=== PATIENT | female | born 1990 | race African-American/Black ===

== ENCOUNTER 2017-04-18 19:46 | Emergency (ER) | payer MEDICAID ==
[~2017-04-18] VITALS: Ht 165.1 cm; Wt 66.7 kg
--- NOTE | 2017-04-18 19:50 | NUR ---
TO BED 8 A 26 YO FEMALE PT BIBA#860, PT C/O ANXIETY ATTACK. PATIENT IS ALERT AND RESPONSIVE. AMBULATORY. VSS. NAD NOTED. NONDIAPHORETIC. PLACED ON MONITORING. COMFORT MEASURES RENDERED. SAFETY MAINTAINED.
--- NOTE | 2017-04-18 20:00 | NUR ---
Ramon Laurent at bedside.
[2017-04-18] MEDS ORDERED: LORAZEPAM 1 MG TABLET ONE (20:10)
[2017-04-18] MEDS ORDERED: LORAZEPAM 1 MG TABLET PO ONE (20:30)
[2017-04-18 20:32] LABS: APPEARANCE,URINE Cloudy (CLEAR); BILIRUBIN,URINE SMALL (NEGATIVE); BLOOD, URINE Negative Ery/uL (NEGATIVE); COLOR,URINE Yellow (YELLOW); KETONES,URINE Negative (NEGATIVE); LEUKOCYTE ESTERASE ,URINE Negative (NEGATIVE); NITRITE, URINE Positive (NEGATIVE); PH,URINE 5.5 (5.0-8.0); PROTEIN,URINE >=300 mg/dl (NEGATIVE); UGLUCOSE Negative (NEGATIVE); UROBILINOGEN,URINE 0.2 EU/dL (0.2)
[2017-04-18 20:54] LABS: BACTERIA,URINE Many /HPF (None Seen); RBC,URINE 0-2 /HPF (0-2); SQUAMOUS EPITHELIAL CELL,UR Moderate /HPF (None Seen); URINE AMORPHOUS URATE Few /HPF (None Seen)
[2017-04-18 20:55] LABS: COARSE GRANULAR CASTS,URINE Few /LPF (None Seen); MUCUS,URINE Moderate /LPF (None Seen)
[2017-04-18] MEDS ORDERED: NITROFURANTOIN/NITROFURAN MAC 100 MG CAPSULE PO ONE (21:30)
[2017-04-18] MEDS ORDERED: NITROFURANTOIN/NITROFURAN MAC 100 MG CAPSULE ONE (21:34)
--- NOTE | 2017-04-18 21:54 | NUR ---
Patient discharged to home in stable condition. Written and verbal after care instructions given. Patient verbalizes understanding of instruction. Patient is ambulatory with steady gait. Instructed patient not to drive. vss. nad noted. no further complaints.
[2017-04-18 21:55] VITALS: BP 118/64
== END 2017-04-18 21:55 | disposition home or self-care (01) ==
LOC: ER 19:47
DX: F41.9 Anxiety disorder, unspecified (principal); F42.8 Other obsessive-compulsive disorder; R45.86 Emotional lability; N39.0 Urinary tract infection, site not specified; I10 Essential (primary) hypertension; Z72.0 Tobacco use
CPT/HCPCS: 81000-TC; 82962-TC; 87086-TC; 87186-TC; A4606; Z7610

== ENCOUNTER 2017-05-11 20:06 | Emergency (ER) | payer MEDICAID ==
[~2017-05-11] VITALS: Ht 165.1 cm; Wt 68.0 kg
[2017-05-11 20:11] VITALS: BP 164/98
--- NOTE | 2017-05-11 23:46 | NUR ---
NO ANSWER AFTER 5 CALLS; AWOL
== END 2017-05-11 23:47 | disposition left against medical advice (07) ==
LOC: ER 20:07
DX: Z53.21 Procedure and treatment not carried out due to patient leaving prior to being seen by health care provider (principal)
CPT/HCPCS: A4606; Z7610

== ENCOUNTER → 2017-05-15 | Emergency (ER) | payer MEDICAID ==
[~2017-05-15] VITALS: Ht 165.1 cm; Wt 68.5 kg
[~2017-05-15] MED LIST: IV NS 0.9% 1,000 ML BAG IV ONE; LEVETIRACETAM (500MG) 1,000 MG in IV NS 0.9% 100 ML IV ONE; LORAZEPAM INJ 2 MG/ML VIAL IV ONE; LORAZEPAM INJ 2 MG/ML VIAL IVP ONE; LORAZEPAM INJ 2 MG/ML VIAL ONE
--- NOTE | 2017-05-15 13:59 | NUR ---
urine collected via clean catch and sent to lab
--- NOTE | 2017-05-15 14:00 | NUR ---
line started on L AC g 20, blood drawn from line and sent to lab
[2017-05-15 14:07] LABS: BASOPHILS # (AUTO) 0.2 /CMM (0.0-0.2); EOSINOPHILS # (AUTO) 0.1 /CMM (0.0-0.7); EOSINOPHILS % (AUTO) 1.8 % (0.0-6.0); HEMATOCRIT 42 % (33-45); HEMOGLOBIN 14.3 g/dL (11.5-14.8); LYMPHOCYTES # (AUTO) 1.6 /CMM (0.8-4.8); LYMPHOCYTES % (AUTO) 26.2 % (20.0-44.0); MEAN CORPUSCULAR HEMOGLOBIN 32 PG (26.0-33.0); MEAN CORPUSCULAR HGB CONC 34 g/dl (31.0-36.0); MEAN CORPUSCULAR VOLUME 92 fL (82-100); MONOCYTES # (AUTO) 0.5 /CMM (0.1-1.30); MONOCYTES % (AUTO) 7.3 % (2.0-12.0); NEUTROPHILS # (AUTO) 3.9 /CMM (1.8-8.9); NEUTROPHILS % (AUTO) 61.7 % (43.0-81.0); PLATELET COUNT (AUTO) 340 /CMM (150-450); RDW COEFFICIENT OF VARIATION 12.4 (11.5-15.0); RED BLOOD CELL COUNT(AUTO) 4.52 MIL/uL (4.0-5.2); WHITE BLOOD COUNT (AUTO) 6.3 K/uL (4.3-11.0)
[2017-05-15 14:15] LABS: CALCIUM, SERUM 9.5 mg/dL (8.5-10.1); CREATININE 0.8 mg/dL (0.6-1.3); POTASSIUM 3.4 mmol/L (3.5-5.1)
[2017-05-15 14:20] LABS: BILIRUBIN,DIRECT 0.1 mg/dL (0.0-0.2); BILIRUBIN,TOTAL 0.7 mg/dL (0.2-1.0); TOTAL PROTEIN, SERUM 8.1 g/dL (6.4-8.2)
[2017-05-15 14:23] LABS: INR 0.96 (0.85-1.15)
--- NOTE | 2017-05-15 15:05 | NUR ---
PT APPEARS TO BE RESTING COMFORTABLY WITH NO S/S OF PAIN OR DISTRESS.
[2017-05-15 15:44] LABS: APPEARANCE,URINE Clear (CLEAR); BILIRUBIN,URINE SMALL (NEGATIVE); BLOOD, URINE Negative Ery/uL (NEGATIVE); COLOR,URINE Yellow (YELLOW); KETONES,URINE 15 (NEGATIVE); LEUKOCYTE ESTERASE ,URINE Small (NEGATIVE); NITRITE, URINE Negative (NEGATIVE); PH,URINE 5.5 (5.0-8.0); PROTEIN,URINE Trace mg/dl (NEGATIVE); UGLUCOSE Negative (NEGATIVE); UROBILINOGEN,URINE 0.2 EU/dL (0.2)
[2017-05-15 15:47] LABS: BACTERIA,URINE Few /HPF (None Seen); SQUAMOUS EPITHELIAL CELL,UR Few /HPF (None Seen)
--- NOTE | 2017-05-15 16:16 | NUR ---
Barry PUGH, AGACNP IS AT THE BEDSIDE.
[2017-05-15 16:27] VITALS: BP 147/87
== END | disposition home or self-care (01) ==
LOC: ER 13:36
DX: G40.909 Epilepsy, unspecified, not intractable, without status epilepticus (principal); N39.0 Urinary tract infection, site not specified; F17.200 Nicotine dependence, unspecified, uncomplicated; F12.10 Cannabis abuse, uncomplicated
CPT/HCPCS: 36415; 80048-TC; 80076-TC; 80305; 81000-TC; 82962-TC; 84703-TC; 85025-TC; 85730-TC; 87086-TC; A4606; J1953; J2060; J7030; Z7610

== ENCOUNTER 2017-05-21 15:24 | Emergency (ER) | payer MEDICAID ==
[~2017-05-21] VITALS: Ht 165.1 cm; Wt 72.6 kg
[2017-05-21 15:30] VITALS: BP 145/93
[2017-05-21] MEDS ORDERED: LORAZEPAM 1 MG TABLET ONE (15:56)
[2017-05-21] MEDS ORDERED: LORAZEPAM 1 MG TABLET PO ONE (16:00)
--- NOTE | 2017-05-21 16:02 | NUR ---
PT REQUESTED FOR A BOOK TRIMMERPRIMO CALLED
--- NOTE | 2017-05-21 16:21 | NUR ---
family service caseworker consult requested by the patient for resources. VITALIY met with pt. and her friend Efrain bedside in ED. Pt. is alert and oriented x 4. Pt. introduced her friend as her caregiver and stated they live together. Pt. comes frequently to [facility] to get her medication Ativan refilled. Pt. states she has stopped used drugs and alcohol. Pt. states she has unsteady gait and has feels dizzy and is unable to care for herself. Pt's caregiver/friend Efrain stated that he goes to work at night as a it security consultant and cannot be left home alone. Ray and pt. requested for VITALIY to assist with caregivers. VITALIY informed pt. she should apply for [employer] since she has [employer]. Pt.stated, she wants the caregiver tonight. VITALIY then offered pt. caregiving resources and informed pt. she would have to pay out of pocket. Pt. got upset, got out of the bed and informed Efrain, " let's get out of here". Pt. left without taking the resources.
== END 2017-05-21 17:05 | disposition home or self-care (01) ==
LOC: ER 15:25
DX: R25.1 Tremor, unspecified (principal); G40.909 Epilepsy, unspecified, not intractable, without status epilepticus; F17.200 Nicotine dependence, unspecified, uncomplicated
CPT/HCPCS: 99284; A4606; Z7610

== ENCOUNTER 2017-06-05 12:33 | Emergency (ER) | payer MEDICAID ==
--- NOTE | 2017-06-05 12:48 | NUR ---
PT REFUSED TO BE TRIAGED. IV removed. Catheter intact and site benign. Pressure and 4x4 applied to site. No bleeding noted.
== END 2017-06-05 12:48 | disposition left against medical advice (07) ==
LOC: ER 12:34
DX: Z53.21 Procedure and treatment not carried out due to patient leaving prior to being seen by health care provider (principal)

== ENCOUNTER 2017-07-17 13:15 | Emergency (ER) | payer MEDICAID ==
[~2017-07-17] VITALS: Ht 172.7 cm; Wt 77.1 kg
--- NOTE | 2017-07-17 13:30 | NUR ---
BB FRIEND FOR SYNCOPE, HIT HEAD TO THE GROUND PER FRIEND UPON GOING DOWN FROM THE CAB ON THE WAY HERE. NOTED TREMORS. PT ADMITS TO DRINKING WITH TAKING MULTIPLE DRUGS FOR A WHILE. LAST DRINK WAS A FEW DAYS AGO. NOTED DROWSY, UNSTEADY GAIT. SEIZURE PRECAUTIONS IMPLEMENTED. SAFETY AND COMFORT MEASURES PROVIDED. WILL MONITOR.
[2017-07-17] MEDS ORDERED: LORAZEPAM INJ 2 MG/ML VIAL ONE (14:02)
[2017-07-17 14:15] LABS: BASOPHILS # (AUTO) 0.2 /CMM (0.0-0.2); BASOPHILS % (AUTO) 3.3 % (0.0-2.0); EOSINOPHILS # (AUTO) 0.1 /CMM (0.0-0.7); HEMATOCRIT 40 % (33-45); HEMOGLOBIN 13.5 g/dL (11.5-14.8); LYMPHOCYTES # (AUTO) 1.8 /CMM (0.8-4.8); LYMPHOCYTES % (AUTO) 33.3 % (20.0-44.0); MEAN CORPUSCULAR HEMOGLOBIN 31 PG (26.0-33.0); MEAN CORPUSCULAR HGB CONC 34 g/dl (31.0-36.0); MEAN CORPUSCULAR VOLUME 92 fL (82-100); MONOCYTES # (AUTO) 0.5 /CMM (0.1-1.30); MONOCYTES % (AUTO) 8.9 % (2.0-12.0); NEUTROPHILS # (AUTO) 2.8 /CMM (1.8-8.9); NEUTROPHILS % (AUTO) 53.5 % (43.0-81.0); PLATELET COUNT (AUTO) 332 /CMM (150-450); RDW COEFFICIENT OF VARIATION 12.2 (11.5-15.0); RED BLOOD CELL COUNT(AUTO) 4.36 MIL/uL (4.0-5.2); WHITE BLOOD COUNT (AUTO) 5.4 K/uL (4.3-11.0)
[2017-07-17 14:22] LABS: CALCIUM, SERUM 9.5 mg/dL (8.5-10.1)
[2017-07-17 14:28] LABS: ALBUMIN 4.6 g/dL (3.4-5.0); BILIRUBIN,DIRECT 0.2 mg/dL (0.0-0.2); BILIRUBIN,TOTAL 0.5 mg/dL (0.2-1.0); TOTAL PROTEIN, SERUM 8.9 g/dL (6.4-8.2)
[2017-07-17] MEDS ORDERED: LORAZEPAM INJ 2 MG/ML VIAL IV ONE (14:30)
[2017-07-17] MEDS ORDERED: IV NS 0.9% 1,000 ML BAG IV ONE (14:30)
--- NOTE | 2017-07-17 14:50 | NUR ---
Patient does not wish to proceed with medical care recommended by . Patient given information related to possible complications, up to and including , which could occur as a result of leaving the hospital at this time. Patient verbalizes understanding of risks involved due to leaving against medical advice. Patient has signed AMA form.
[2017-07-17 15:08] VITALS: BP 145/84
== END 2017-07-17 15:08 | disposition left against medical advice (07) ==
LOC: ER 13:16
DX: G40.909 Epilepsy, unspecified, not intractable, without status epilepticus (principal); F19.10 Other psychoactive substance abuse, uncomplicated; R45.851 Suicidal ideations; F17.200 Nicotine dependence, unspecified, uncomplicated
CPT/HCPCS: 36415; 80048-TC; 80076-TC; 80185-TC; 85025-TC; A4606; G0480; J2060; Z7610

== ENCOUNTER 2017-07-23 21:38 | Emergency (ER) | payer OTHER ==
[~2017-07-23] VITALS: Ht 165.1 cm; Wt 71.2 kg
[2017-07-23 21:41] VITALS: BP 133/88
== END 2017-07-23 22:49 | disposition home or self-care (01) ==
LOC: ER 21:39
DX: F41.9 Anxiety disorder, unspecified (principal); F10.10 Alcohol abuse, uncomplicated; I10 Essential (primary) hypertension; J45.909 Unspecified asthma, uncomplicated; G40.909 Epilepsy, unspecified, not intractable, without status epilepticus; F17.200 Nicotine dependence, unspecified, uncomplicated
CPT/HCPCS: A4606; Z7610

== ENCOUNTER 2018-05-28 03:32 | Emergency (ER) | payer OTHER ==
[~2018-05-28] VITALS: Ht 180.3 cm; Wt 83.9 kg
--- NOTE | 2018-05-28 03:45 | NUR ---
PT VALENTINE FOUND IN HOME "ACTING BIZZARE". PER RA, ROOMMATE STATES PT USED METH EARLIER TODAY. RA ADMINISTERED VERSED 5MG IM INJECTION MOLDING TECHNICIAN. PT AAOX3. IRRITATED AND RESTLESS IN BED. TALKING TO SELF. NOTED TACHYCARDIA, AWARE. PT PLACED ON MONITOR, WILL CONTINUE TO MONITOR.
--- NOTE | 2018-05-28 03:45 | NUR ---
MD AT BEDSIDE FOR EVALUATION
--- NOTE | 2018-05-28 03:50 | NUR ---
URINE COLLECTED AND SENT TO LAB
[2018-05-28] MEDS ORDERED: LORAZEPAM INJ 2 MG/ML VIAL ONE (03:56)
[2018-05-28] MEDS ORDERED: LORAZEPAM INJ 2 MG/ML VIAL IM ONE (04:00)
[2018-05-28] MEDS ORDERED: diphenhydrAMINE HCL 50 MG/ML VIAL IM ONE (04:00)
[2018-05-28] MEDS ORDERED: diphenhydrAMINE HCL 50 MG/ML VIAL ONE (04:03)
--- NOTE | 2018-05-28 04:05 | NUR ---
FORTUNE COOKIE MAKER AT BEDSIDE FOR BLOOD DRAW
[2018-05-28 04:23] LABS: BASOPHILS # (AUTO) 0.1 /CMM (0.0-0.2); BASOPHILS % (AUTO) 0.9 % (0.0-2.0); EOSINOPHILS % (AUTO) 1.6 % (0.0-6.0); HEMATOCRIT 40 % (33-45); HEMOGLOBIN 13.7 g/dL (11.5-14.8); LYMPHOCYTES # (AUTO) 2.4 /CMM (0.8-4.8); MEAN CORPUSCULAR HGB CONC 34 g/dl (31.0-36.0); MEAN CORPUSCULAR VOLUME 92 fL (82-100); MONOCYTES # (AUTO) 0.6 /CMM (0.1-1.30); MONOCYTES % (AUTO) 10.1 % (2.0-12.0); NEUTROPHILS # (AUTO) 2.6 /CMM (1.8-8.9); NEUTROPHILS % (AUTO) 45.4 % (43.0-81.0); PLATELET COUNT (AUTO) 262 /CMM (150-450); RED BLOOD CELL COUNT(AUTO) 4.36 MIL/uL (4.0-5.2); WHITE BLOOD COUNT (AUTO) 5.8 K/uL (4.3-11.0)
[2018-05-28 04:24] LABS: APPEARANCE,URINE CLEAR (CLEAR); BILIRUBIN,URINE 1+ (NEGATIVE); BLOOD, URINE NEGATIVE Ery/uL (NEGATIVE); COLOR,URINE YELLOW (YELLOW); KETONES,URINE TRACE (NEGATIVE); LEUKOCYTE ESTERASE ,URINE TRACE (NEGATIVE); NITRITE, URINE NEGATIVE (NEGATIVE); PROTEIN,URINE 2+ mg/dl (NEGATIVE); UGLUCOSE NEGATIVE (NEGATIVE)
[2018-05-28 04:35] LABS: ALANINE AMINOTRANSFERASE 26 U/L (12-78); ALBUMIN 4.5 g/dL (3.4-5.0); ALCOHOL, BLOOD < 3 mg/dL (0-0); ALKALINE PHOSPHATASE 88 U/L (46-116); ASPARTATE AMINOTRANSFERASE 23 U/L (15-37); BILIRUBIN,DIRECT 0.2 mg/dL (0.0-0.2); BILIRUBIN,TOTAL 0.7 mg/dL (0.2-1.0); CALCIUM, SERUM 10.1 mg/dL (8.5-10.1); CARBON DIOXIDE 26 mmol/L (21-32); CHLORIDE 105 mmol/L (98-107); CREATININE 0.9 mg/dL (0.6-1.3); GLUCOSE 99 mg/dL (74-106); POTASSIUM 3.4 mmol/L (3.5-5.1); SALICYLATE 4.3 mg/dL (2.8-20.0); SODIUM SERUM 143 mmol/L (136-145); TOTAL PROTEIN, SERUM 8.3 g/dL (6.4-8.2); UREA NITROGEN, BLOOD 11 mg/dL (7-18)
[2018-05-28 04:36] LABS: ACETAMINOPHEN 0 ug/ml (10-30)
[2018-05-28 04:57] LABS: BACTERIA,URINE Few /HPF (None Seen); RBC,URINE 0-2 /HPF (0-2); SQUAMOUS EPITHELIAL CELL,UR Few /HPF (None Seen)
[2018-05-28 04:58] LABS: TRICHOMONAS,URINE Few /HPF (None Seen)
[2018-05-28] MEDS ORDERED: METRONIDAZOLE 500 MG TABLET PO ONE (05:30)
--- NOTE | 2018-05-28 05:30 | NUR ---
PT RESTING COMFORTABLY IN BED. VITAL SIGNS STABLE. OPENS EYES WTIH PAINFUL STIMULI. STILL ON MONITOR, WILL CONTINUE TO MONITOR.
--- NOTE | 2018-05-28 07:22 | NUR ---
received report from Jen VIVAR for ed, patient asleep, will continue to monitor accordingly.
--- NOTE | 2018-05-28 12:04 | NUR ---
CALLED LAYOUT TECHNICIAN FOR EVAL - ART MELTER SUPERVISOR ELECTRIC ARC FURNACE
--- NOTE | 2018-05-28 13:04 | NUR ---
art MD PHYSICIAN DERMATOLOGIST at bedside for eval.
--- NOTE | 2018-05-28 13:10 | NUR ---
REGULAR DIET MEAL TRAY ORDRED FOR PT AWARE
[2018-05-28] MEDS ORDERED: METRONIDAZOLE 500 MG TABLET ONE (13:26)
[2018-05-28 14:05] VITALS: BP 125/81
--- NOTE | 2018-05-28 14:05 | NUR ---
patient left in stable condition, cleared by Art TECHNICAL SUPPORT COORDINATOR, provided drug abuse resource and able to understand. Denies any pain or discomfort at this time. Per patient her friend will pick her up.
== END 2018-05-28 14:05 | disposition home or self-care (01) ==
LOC: ER 03:33
DX: F19.14 Other psychoactive substance abuse with psychoactive substance-induced mood disorder (principal); F31.9 Bipolar disorder, unspecified; R45.1 Restlessness and agitation; R45.851 Suicidal ideations; F15.10 Other stimulant abuse, uncomplicated; A59.9 Trichomoniasis, unspecified; N39.0 Urinary tract infection, site not specified; E87.6 Hypokalemia; I10 Essential (primary) hypertension; J45.909 Unspecified asthma, uncomplicated; R06.4 Hyperventilation; R56.9 Unspecified convulsions; F10.10 Alcohol abuse, uncomplicated; F17.200 Nicotine dependence, unspecified, uncomplicated; F13.10 Sedative, hypnotic or anxiolytic abuse, uncomplicated; Y90.0 Blood alcohol level of less than 20 mg/100 ml
CPT/HCPCS: 36415; 80048; 80076; 80305; 80307; 80329; 81001; 85025; 87077; 87086; 87186; 96372 ×2; 99285; A4606; G0480; J1200; J2060; 81000-TC

== ENCOUNTER 2018-08-12 11:33 | Emergency (ER) | payer MEDICAID, OTHER ==
[~2018-08-12] VITALS: Ht 165.1 cm; Wt 81.7 kg
[2018-08-12 11:37] VITALS: BP 133/88
--- NOTE | 2018-08-12 11:59 | NUR ---
PATIENT A/OX4, VERBALLY RESPONSIVE, NO DISTRESS NOTED, STATED "I'M FINE, I JUST WANT TO GO BACK."
== END 2018-08-12 12:02 ==
LOC: ER 11:35
DX: R56.9 Unspecified convulsions (principal); I10 Essential (primary) hypertension; J45.909 Unspecified asthma, uncomplicated; F32.9 Major depressive disorder, single episode, unspecified; F41.9 Anxiety disorder, unspecified; F17.200 Nicotine dependence, unspecified, uncomplicated

== ENCOUNTER → 2018-08-12 | Emergency (ER) | payer OTHER ==
[~2018-08-12] VITALS: Ht 165.1 cm; Wt 81.6 kg
[2018-08-12 15:59] VITALS: BP 125/89
== END ==
LOC: ER 15:43
DX: G40.909 Epilepsy, unspecified, not intractable, without status epilepticus (principal); F17.200 Nicotine dependence, unspecified, uncomplicated; F32.9 Major depressive disorder, single episode, unspecified; F41.9 Anxiety disorder, unspecified; I10 Essential (primary) hypertension; J45.909 Unspecified asthma, uncomplicated

== ENCOUNTER 2018-10-24 14:06 | Emergency (ER) | payer MEDICAID, OTHER ==
[~2018-10-24] VITALS: Ht 165.1 cm; Wt 80.7 kg
[2018-10-24 14:19] VITALS: BP 120/89
[2018-10-24] MEDS ORDERED: LEVETIRACETAM (250 MG) 250 MG TABLET PO ONE ×2 (16:00→16:02)
--- NOTE | 2018-10-24 16:12 | NUR ---
Patient discharged to home in stable condition. Written and verbal after care instructions given. Patient verbalizes understanding of instruction.
== END 2018-10-24 16:12 | disposition home or self-care (01) ==
LOC: ER 14:06
DX: R56.9 Unspecified convulsions (principal); J45.909 Unspecified asthma, uncomplicated; F41.9 Anxiety disorder, unspecified; F31.9 Bipolar disorder, unspecified; F10.10 Alcohol abuse, uncomplicated; F17.200 Nicotine dependence, unspecified, uncomplicated; Y90.9 Presence of alcohol in blood, level not specified

== ENCOUNTER 2018-10-29 11:42 | Emergency (ER) | payer MEDICAID ==
[~2018-10-29] VITALS: Ht 165.1 cm; Wt 85.7 kg
--- NOTE | 2018-10-29 11:50 | NUR ---
PT [id number] FROM A HOMELESS HALF-WAY TO ED BED 13. PER REPORT, WITNESSED SEIZURE LIKE ACTIVITY. PT KNOWN HX OF SEIZURE AND TAKES KEPPRA. WAS GIVEN VERSED 5 IM STONE CUTTER. LETHARGIC STONE CUTTER, AROUSABLE. NO OBVIOUS ORAL TRAUMA NOTED. PLACED ON MONITOR AND SEIZURE PRECAUTION. STABLE VITALS. AWAITING MD FREEMAN.
--- NOTE | 2018-10-29 12:30 | NUR ---
DR LOVING AT BEDSIDE FOR EVAL.
--- NOTE | 2018-10-29 13:55 | NUR ---
PATIENT REMAIN LETHARGIC AROUSABLE TO PAIN .RUB CHEST STIMULI NOTED NO FAMILY @ BEDSIDE REPORT GIVEN BY DIRECTOR TALENT DEBORAH puente PATIENT [facility] S/[facility] SEIZURE ,PATIENT ON MONITOR BLOOD OBTAINED AND SEND TO LAB ,URINE OBTAINED
--- NOTE | 2018-10-29 14:55 | NUR ---
PATIENT AWAKE REQUSTING FOR FOOD ,SHE ABLE TO MAKE HER NEEDS CONTINUE TO MONITOR SZ PRECAUTION
--- NOTE | 2018-10-29 16:03 | NUR ---
PT IS AAOX3, AMBULATORY W/ STEADY GAIT. Patient discharged to home in stable condition. Written and verbal after care instructions given. Patient verbalizes understanding of instruction.IV removed. Catheter intact and site benign. Pressure and 4x4 applied to site. No bleeding noted.
[2018-10-29 16:06] VITALS: BP 135/84
== END 2018-10-29 16:07 | disposition home or self-care (01) ==
LOC: ER 11:42
DX: R41.82 Altered mental status, unspecified (principal); G40.909 Epilepsy, unspecified, not intractable, without status epilepticus; F19.10 Other psychoactive substance abuse, uncomplicated; I10 Essential (primary) hypertension; J45.909 Unspecified asthma, uncomplicated; F31.9 Bipolar disorder, unspecified; F41.9 Anxiety disorder, unspecified; F10.10 Alcohol abuse, uncomplicated; F17.200 Nicotine dependence, unspecified, uncomplicated; F12.10 Cannabis abuse, uncomplicated; F15.10 Other stimulant abuse, uncomplicated; Y90.0 Blood alcohol level of less than 20 mg/100 ml; Z59.0 Homelessness
CPT/HCPCS: 36415; 80305; 82962-TC; 84703-TC; G0480

== ENCOUNTER 2020-01-07 09:59 | Emergency (ER) | payer OTHER ==
[~2020-01-07] VITALS: Ht 170.2 cm; Wt 82.6 kg
[2020-01-07 10:07] VITALS: BP 146/98
[2020-01-07] MEDS ORDERED: ACETAMINOPHEN ES 500 MG TABLET PO ONE (11:00)
[2020-01-07] MEDS ORDERED: LORAZEPAM 1 MG TABLET PO ONE (11:00)
[2020-01-07] MEDS ORDERED: ACETAMINOPHEN ES 500 MG TABLET ONE (11:13)
[2020-01-07] MEDS ORDERED: LORAZEPAM 1 MG TABLET ONE (11:13)
== END 2020-01-07 13:29 | disposition home or self-care (01) ==
LOC: MERGE 10:11 → ER 10:11
DX: F41.9 Anxiety disorder, unspecified (principal); B86 Scabies; Z60.2 Problems related to living alone

== ENCOUNTER 2020-05-29 20:38 | Emergency (ER) | payer MEDICAID, OTHER ==
[~2020-05-29] VITALS: Ht 172.7 cm; Wt 83.0 kg
--- NOTE | 2020-05-29 21:10 | NUR ---
BIBEMS & [employer] C/O WALKING AROUND SHIRTLESS, HYPERVERBAL WITH FLIGHT OF IDEAS & NOT ANSWERING TO ANY QUESTIONS. RR EVEN & UNLABORED. PT SEEN & EVAL'D BY DELPHINE BUCKNER. SITTER AT & WILL CONT TO MONITOR.
[2020-05-29 21:34] LABS: BASOPHILS # (AUTO) 0.1 /CMM (0.0-0.2); BASOPHILS % (AUTO) 0.7 % (0.0-2.0); EOSINOPHILS % (AUTO) 2.5 % (0.0-6.0); HEMATOCRIT 36 % (33-45); HEMOGLOBIN 11.9 g/dL (11.5-14.8); LYMPHOCYTES # (AUTO) 2.2 /CMM (0.8-4.8); LYMPHOCYTES % (AUTO) 32.2 % (20.0-44.0); MEAN CORPUSCULAR HGB CONC 33 g/dl (31.0-36.0); MEAN CORPUSCULAR VOLUME 95 fL (82-100); MONOCYTES # (AUTO) 0.7 /CMM (0.1-1.30); MONOCYTES % (AUTO) 10.6 % (2.0-12.0); NEUTROPHILS # (AUTO) 3.7 /CMM (1.8-8.9); PLATELET COUNT (AUTO) 385 /CMM (150-450); RED BLOOD CELL COUNT(AUTO) 3.84 MIL/uL (4.0-5.2); WHITE BLOOD COUNT (AUTO) 6.9 K/uL (4.3-11.0)
[2020-05-29 21:40] LABS: CALCIUM, SERUM 9.6 mg/dL (8.5-10.1); CARBON DIOXIDE 26 mmol/L (21-32); CHLORIDE 104 mmol/L (98-107); CREATININE 0.8 mg/dL (0.6-1.3); GLUCOSE 102 mg/dL (74-106); POTASSIUM 3.9 mmol/L (3.5-5.1); SODIUM SERUM 141 mmol/L (136-145); UREA NITROGEN, BLOOD 18 mg/dL (7-18)
[2020-05-29 21:46] LABS: ACETAMINOPHEN < 2 ug/ml (10-30); ALANINE AMINOTRANSFERASE 29 U/L (12-78); ALBUMIN 4.2 g/dL (3.4-5.0); ALCOHOL, BLOOD < 3 mg/dL (0-0); ALKALINE PHOSPHATASE 74 U/L (46-116); ASPARTATE AMINOTRANSFERASE 26 U/L (15-37); BILIRUBIN,DIRECT 0.1 mg/dL (0.0-0.2); BILIRUBIN,TOTAL 0.3 mg/dL (0.2-1.0); TOTAL PROTEIN, SERUM 8.4 g/dL (6.4-8.2)
[2020-05-29 22:18] LABS: BILIRUBIN,URINE NEGATIVE (NEGATIVE); COLOR,URINE YELLOW (YELLOW); LEUKOCYTE ESTERASE ,URINE NEGATIVE (NEGATIVE); NITRITE, URINE NEGATIVE (NEGATIVE); PROTEIN,URINE TRACE mg/dl (NEGATIVE); UGLUCOSE NEGATIVE (NEGATIVE)
[2020-05-29 22:27] LABS: BACTERIA,URINE 2+ /HPF (None Seen); RBC,URINE 0-2 /HPF (0-2); SQUAMOUS EPITHELIAL CELL,UR Many /HPF (None Seen); URINE AMORPHOUS URATE Many /HPF (None Seen)
[2020-05-29] MEDS ORDERED: OLANZAPINE 10 MG VIAL IM ONE ×2 (22:30→22:36)
--- NOTE | 2020-05-29 22:43 | NUR ---
PT BECAME AGITATED, MEDICATED PER DELPHINE BUCKNER'S ORDER. WILL CONT TO MONITOR & SITTER AT BS.
--- NOTE | 2020-05-30 05:36 | NUR ---
PT VERY AGITATED, SCREAMING, VERBALLY ABUSIVE TO ER STAFF. ER MD MADE AWARE.
--- NOTE | 2020-05-30 06:01 | NUR ---
PT REMAINS TO SCREAM, UNCOOPERATIVE AND VERBALLY ABUSIVE. ER MD AWARE WITH ORDERS RECEIVED. WILL CARRY OUT ORDERS. OPP PROPERTY INVESTOR AT BEDSIDE TO EVAL PT.
[2020-05-30] MEDS ORDERED: OLANZAPINE 10 MG VIAL IM ONE ×2 (06:09→06:30)
[2020-05-30] MEDS ORDERED: HALOPERIDOL LACTATE INJ 5 MG/ML VIAL IM ONE (12:00)
[2020-05-30] MEDS ORDERED: diphenhydrAMINE HCL 50 MG/ML VIAL IM ONE (12:00)
[2020-05-30] MEDS ORDERED: LORAZEPAM INJ 2 MG/ML VIAL IM/IV ONE (12:00)
[2020-05-30] MEDS ORDERED: LORAZEPAM INJ 2 MG/ML VIAL ONE (12:03)
[2020-05-30] MEDS ORDERED: diphenhydrAMINE HCL 50 MG/ML VIAL ONE (12:03)
[2020-05-30] MEDS ORDERED: HALOPERIDOL LACTATE INJ 5 MG/ML VIAL ONE (12:03)
--- NOTE | 2020-05-30 12:11 | NUR ---
PT AGITATED, THROWING FOOD & SCREAMING AT STAFF. MEDICATED PER ERDM ORDER. PLACED ON BRAND ACTIVATION MANAGER, SR. SITTER AT BS & ULI CONT TO MONITOR.
--- NOTE | 2020-05-30 12:55 | NUR ---
PT ASLEEP, EASILY AROUSED. RR EVEN & UNLABORED. VSS. WILL CONT TO MONITOR.
--- NOTE | 2020-05-30 16:24 | NUR ---
PT ASLEEP, EASILY AROUSED. RR EVEN & UNLABORED. VSS. WILL CONT TO MONITOR.
--- NOTE | 2020-05-31 03:00 | NUR ---
PT AWAKE, PT WAS YELLING / SCREAMING INCOHERENT THINGS. DR. RODRIGUEZ NOTIFIED. NEW ORDERS FOR ZYPREXA
[2020-05-31] MEDS ORDERED: OLANZAPINE 10 MG VIAL IM ONE ×2 (03:14→03:30)
--- NOTE | 2020-05-31 03:55 | NUR ---
PT ON MONITOR. NO SOB, NOT IN ANY DISTRESS, VSS. WCTM
--- NOTE | 2020-05-31 07:48 | NUR ---
ASSESSED PT ON BED ASLEEP EASILY AROUSABLE, NOT IN RESPIRATORY DISTRESS, V/S STABLE, KEPT RESTED AND COMFORTABLE. WILL CONTINUE TO MONITOR.
--- NOTE | 2020-05-31 09:55 | NUR ---
VITALIY ONEIL AT BEDSIDE FOR EVAL.
[2020-05-31 10:23] VITALS: BP 125/77
--- NOTE | 2020-05-31 10:23 | NUR ---
Patient given written and verbal discharge instructions. Patient verbalizes understanding of instructions. Patient is ambulatory with steady gait. Refuses offer of jail placement. Patient given list of available shelters in surrounding area.
--- NOTE | 2020-05-31 13:37 | NUR ---
SS CONSULT & DISCHARGE PLANNING: Sailor consultation requested for homelessness. Per chart notes, patient was brought in to the ED by EMS and [employer] for [address]. At time of admission, patient was was found shirtless and presented psychotic. Patient was assessed by crisis and hold was discontinued. Per patients toxicology report, patient was positive for multiple substances which include, cannabinoids, benzodiazepines, and amphetamine. SW met with patient. Pt was alert and oriented x3. Pt presented grandiose and rastafari. Patient stated that she lives with her boyfriend Florentin and a friend Evan in an . SW discussed patients discharge plan and the patient mentioned that she wants to return to at [address] [facility] with her boyfriend Florentin and can arrange for her own transportation. Patient reported that she is compliant with her medications, and is taking the following psychiatric medications: [place], Abilify, and Haldol, which she gets from a local [facility] pharmacy. SW assessed patients substance abuse history, and patient mentioned that she is taking shrooms but was unable to be redirected to discuss her hx of substance use. Patient currently receives EBT and stated that she shops for free at [facility]. SW assessed for hallucinations and pt confirmed that she has auditory hallucinations and stated that she can hear voices. Pt denies auditory hallucinations during the assessment. Pt denies any thoughts of suicide or homicide. SW discussed patients needs for community resources. Patient agreed to receive these resources. SW provided the patient with the [facility] community resource packet. Patient was provided with clothing prior to discharge. Patient signed the homeless waiver.
== END 2020-05-31 10:23 | disposition home or self-care (01) ==
LOC: ER 20:38
DX: F19.10 Other psychoactive substance abuse, uncomplicated (principal); F22 Delusional disorders; Z59.0 Homelessness; Z91.5 Personal history of self-harm; F31.9 Bipolar disorder, unspecified; I10 Essential (primary) hypertension; J45.909 Unspecified asthma, uncomplicated; Z20.822 Contact with and (suspected) exposure to COVID-19
CPT/HCPCS: 36415; 80048; 80076; 80299; 80307; 80320; 81001; 84703; 85025; 87086; 87426; 96372 ×2; 99285; C9803; J1200; J1630; J2060; J3490 ×3; G0480

== ENCOUNTER 2020-10-06 10:40 | Emergency (ER) | payer MEDICAID ==
[~2020-10-06] VITALS: Ht 165.1 cm; Wt 65.8 kg
--- NOTE | 2020-10-06 11:54 | NUR ---
The patient is [id number]/[address], acting bizzare w/ no clothing and covered w/ paint. The patient is alert and oriented x3. Denies pain. In room air and denies SOB. Respiration regular and unlabored. Denies SI/HI. Warm blanket provided for comfort. Will continue to monitor the patient.
[2020-10-06 12:24] LABS: BASOPHILS % (AUTO) 0.7 % (0.0-2.0); EOSINOPHILS % (AUTO) 1.4 % (0.0-6.0); HEMATOCRIT 37 % (33-45); HEMOGLOBIN 12.3 g/dL (11.5-14.8); LYMPHOCYTES # (AUTO) 1.8 K/uL (0.8-4.8); LYMPHOCYTES % (AUTO) 42.5 % (20.0-44.0); MEAN CORPUSCULAR HGB CONC 33 g/dl (31.0-36.0); MEAN CORPUSCULAR VOLUME 95 fL (82-100); MONOCYTES # (AUTO) 0.4 K/uL (0.1-1.30); MONOCYTES % (AUTO) 8.8 % (2.0-12.0); NEUTROPHILS % (AUTO) 46.6 % (43.0-81.0); PLATELET COUNT (AUTO) 304 K/uL (150-450); WHITE BLOOD COUNT (AUTO) 4.3 K/uL (4.3-11.0)
[2020-10-06 12:30] LABS: CARBON DIOXIDE 27 mmol/L (21-32); CHLORIDE 103 mmol/L (98-107); CREATININE 0.7 mg/dL (0.6-1.3); GLUCOSE 96 mg/dL (74-106); POTASSIUM 4.1 mmol/L (3.5-5.1); SODIUM SERUM 137 mmol/L (136-145); UREA NITROGEN, BLOOD 12 mg/dL (7-18)
[2020-10-06 12:32] LABS: BILIRUBIN,URINE Negative (NEGATIVE); COLOR,URINE DARK YELLOW (YELLOW); LEUKOCYTE ESTERASE ,URINE Negative (NEGATIVE); NITRITE, URINE Negative (NEGATIVE); PH,URINE 7.5 (5.0-8.0); PROTEIN,URINE 30 mg/dl (NEGATIVE); UGLUCOSE Negative (NEGATIVE); UROBILINOGEN,URINE 0.2 EU/dL (0.2)
[2020-10-06 12:37] LABS: ALANINE AMINOTRANSFERASE 23 U/L (12-78); ALBUMIN 4.2 g/dL (3.4-5.0); ALKALINE PHOSPHATASE 72 U/L (46-116); ASPARTATE AMINOTRANSFERASE 18 U/L (15-37); BILIRUBIN,DIRECT 0.1 mg/dL (0.0-0.2); BILIRUBIN,TOTAL 0.4 mg/dL (0.2-1.0); TOTAL PROTEIN, SERUM 7.8 g/dL (6.4-8.2)
[2020-10-06 12:50] LABS: BACTERIA,URINE 4+ /HPF (None Seen); RBC,URINE NONE SEEN /HPF (0-2); WBC,URINE NONE SEEN /HPF (0-3)
[2020-10-06 12:51] LABS: SQUAMOUS EPITHELIAL CELL,UR Rare /HPF (None Seen); URINE AMORPHOUS PHOSPHATES Moderate /HPF (None Seen)
[2020-10-06 12:59] LABS: ACETAMINOPHEN < 3 ug/ml (10-30); ALCOHOL, BLOOD 0 mg/dL (0-0)
--- NOTE | 2020-10-06 13:35 | NUR ---
The patient alert and oriented x3. Denies pain. In room air and denies SOB. Respiration regular and unlabored. Denies SI/HI. Patient has stable gait. Patient discharged in stable condition. Written and verbal after care instructions given. Patient verbalizes understanding of instruction.
[2020-10-06 13:36] VITALS: BP 127/83
--- NOTE | 2020-10-06 15:06 | NUR ---
Photovoltaic Panel Installer note: director of child welfare services consult requested for homelessness and bizarre behavior. Upon arrival, patient had already departed. SW was unable to interview patient and assess patient's need for community resources. No further SS intervention at this time, however, SW will remain available as needed.
== END 2020-10-06 13:36 ==
LOC: ER 10:44
DX: F15.10 Other stimulant abuse, uncomplicated (principal); Z20.822 Contact with and (suspected) exposure to COVID-19; Z59.0 Homelessness; F17.200 Nicotine dependence, unspecified, uncomplicated
CPT/HCPCS: 36415; 80048; 80076; 80143; 80307; 80320; 81001; 84703; 85025; 87077; 87086; 87186; 87426; 99283; C9803; G0480

== ENCOUNTER 2020-10-16 16:51 | Emergency (ER) | payer MEDICAID, OTHER ==
[~2020-10-16] VITALS: Ht 165.1 cm; Wt 65.8 kg
--- NOTE | 2020-10-16 17:00 | NUR ---
patient bibra60 and [employer], from a holding [facility], running around naked on the [address] on [address], [address] around naked [address]. confused. no sob noted, no s/o any acute distress. able to to make needs known. denies pain at this time. breathing even and unlabored. stable on RA. patient kept comfortable. will continue with plan of care
--- NOTE | 2020-10-16 17:34 | NUR ---
urine collected and send to lab
--- NOTE | 2020-10-16 17:46 | NUR ---
covid 19 swab done and send to lab
[2020-10-16 17:53] LABS: BASOPHILS % (AUTO) 0.7 % (0.0-2.0); EOSINOPHILS % (AUTO) 1.7 % (0.0-6.0); HEMATOCRIT 38 % (33-45); HEMOGLOBIN 12.4 g/dL (11.5-14.8); LYMPHOCYTES # (AUTO) 1.9 K/uL (0.8-4.8); LYMPHOCYTES % (AUTO) 32.3 % (20.0-44.0); MEAN CORPUSCULAR HGB CONC 33 g/dl (31.0-36.0); MEAN CORPUSCULAR VOLUME 95 fL (82-100); MONOCYTES # (AUTO) 0.5 K/uL (0.1-1.30); MONOCYTES % (AUTO) 9.3 % (2.0-12.0); NEUTROPHILS # (AUTO) 3.3 K/uL (1.8-8.9); PLATELET COUNT (AUTO) 252 K/uL (150-450); RED BLOOD CELL COUNT(AUTO) 3.98 MIL/uL (4.0-5.2); WHITE BLOOD COUNT (AUTO) 5.9 K/uL (4.3-11.0)
[2020-10-16 17:58] LABS: BILIRUBIN,URINE NEGATIVE (NEGATIVE); COLOR,URINE YELLOW (YELLOW); LEUKOCYTE ESTERASE ,URINE NEGATIVE (NEGATIVE); NITRITE, URINE NEGATIVE (NEGATIVE); PROTEIN,URINE NEGATIVE (NEGATIVE); UGLUCOSE NEGATIVE (NEGATIVE); UROBILINOGEN,URINE 0.2 EU/dL (0.2)
[2020-10-16 18:06] LABS: CALCIUM, SERUM 9.4 mg/dL (8.5-10.1); CARBON DIOXIDE 27 mmol/L (21-32); CHLORIDE 105 mmol/L (98-107); CREATININE 0.9 mg/dL (0.6-1.3); GLUCOSE 93 mg/dL (74-106); POTASSIUM 4.1 mmol/L (3.5-5.1); SODIUM SERUM 140 mmol/L (136-145); UREA NITROGEN, BLOOD 18 mg/dL (7-18)
[2020-10-16 18:13] LABS: ALANINE AMINOTRANSFERASE 19 U/L (12-78); ALBUMIN 4.1 g/dL (3.4-5.0); ALKALINE PHOSPHATASE 63 U/L (46-116); ASPARTATE AMINOTRANSFERASE 20 U/L (15-37); BILIRUBIN,DIRECT 0.1 mg/dL (0.0-0.2); BILIRUBIN,TOTAL 0.3 mg/dL (0.2-1.0)
[2020-10-16 18:14] LABS: ALCOHOL, BLOOD < 3 mg/dL (0-0)
[2020-10-16 18:17] LABS: ACETAMINOPHEN < 2 ug/ml (10-30)
[2020-10-16] MEDS ORDERED: OLANZAPINE 5 MG TABLET PO ONE (18:30)
[2020-10-16] MEDS ORDERED: OLANZAPINE 5 MG TABLET ONE (18:37)
--- NOTE | 2020-10-16 19:01 | NUR ---
wil called for psych eval. eta 45 mins
[2020-10-16] MEDS ORDERED: diphenhydrAMINE HCL 50 MG/ML VIAL ONE (19:45)
[2020-10-16] MEDS ORDERED: LORAZEPAM INJ 2 MG/ML VIAL ONE ×2 (19:45→21:21)
[2020-10-16] MEDS ORDERED: diphenhydrAMINE HCL 50 MG/ML VIAL IM ONE (20:00)
[2020-10-16] MEDS ORDERED: LORAZEPAM INJ 2 MG/ML VIAL IM ONE ×2 (20:00→21:30)
[2020-10-16] MEDS ORDERED: HALOPERIDOL LACTATE INJ 5 MG/ML VIAL ONE (21:20)
[2020-10-16] MEDS ORDERED: HALOPERIDOL LACTATE INJ 5 MG/ML VIAL IM ONE (21:30)
--- NOTE | 2020-10-17 01:54 | NUR ---
PROVIDED WITH BLANKET. VSS.
--- NOTE | 2020-10-17 06:49 | NUR ---
PT AWAKE IN BED, EATING. VSS.
[2020-10-17] MEDS ORDERED: OLANZAPINE 10 MG VIAL IM ONE ×2 (10:00→10:08)
--- NOTE | 2020-10-17 10:13 | NUR ---
PT WANDERING IN HALLWAY. AGITATED. DR SHEPARD AWARE. MEDICATED ORDERED. 1:1 SITTER AT BEDSIDE.
--- NOTE | 2020-10-17 10:50 | NUR ---
CALLED DANIEL TO FOLLOW UP WITH CASE ON PATIENT. PER DANIEL CLINICALS WERE FAXED WITH [facility] BUT WILL FOLLOW UP.
--- NOTE | 2020-10-17 11:14 | NUR ---
THE PATIENT IS SLEEPING IN BED. RESPONSIVE TO VERBALLY STIMULI. RESPIRATION REGULAR AND UNLABORED. WILL CONTINUE TO MONITOR THE PATIENT.
--- NOTE | 2020-10-17 16:48 | NUR ---
PER CLINICIAN DANIEL SHE WILL BE HERE TO SEE THE PATIENT IN AN HOUR.
--- NOTE | 2020-10-17 17:30 | NUR ---
DANIEL AT BEDSIDE FOR RE-EVAL.
[2020-10-17 17:46] VITALS: BP 123/71
--- NOTE | 2020-10-17 17:46 | NUR ---
Patient given written and verbal discharge instructions. Patient verbalizes understanding of instructions. Patient is ambulatory with steady gait. Refuses offer of correction placement. Patient given list of available shelters in surrounding area.
== END 2020-10-17 17:46 | disposition home or self-care (01) ==
LOC: ER 16:55
DX: F23 Brief psychotic disorder (principal); F31.9 Bipolar disorder, unspecified; J45.909 Unspecified asthma, uncomplicated; F41.9 Anxiety disorder, unspecified; Z91.5 Personal history of self-harm; Z59.0 Homelessness; Z20.822 Contact with and (suspected) exposure to COVID-19; F15.10 Other stimulant abuse, uncomplicated
CPT/HCPCS: 36415; 80048; 80076; 80143; 80307; 80320; 81003; 84703; 85025; 87426; 96372 ×2; 99291; C9803; J1200; J1630; J2060 ×2; J3490; G0480

== ENCOUNTER 2024-11-19 12:36 | Emergency (ER) | payer OTHER ==
[~2024-11-19] VITALS: Ht 162.6 cm; Wt 99.8 kg
[2024-11-19 12:40] VITALS: TEMP 98.1
[2024-11-19] MEDS: VALPROATE 500 MG in IV D5W 100 ML IV STA (13:30)
[2024-11-19] MEDS ORDERED: DIVA500T2 PO (14:19)
[2024-11-19 14:49] VITALS: BP 120/70; O2SAT 99
== END 2024-11-19 14:49 | disposition home or self-care (01) ==
LOC: ER 12:41
DX: G40.909 Epilepsy, unspecified, not intractable, without status epilepticus (principal); F17.200 Nicotine dependence, unspecified, uncomplicated; F31.9 Bipolar disorder, unspecified; I10 Essential (primary) hypertension; J45.909 Unspecified asthma, uncomplicated; Z59.00 Homelessness unspecified; Z79.899 Other long term (current) drug therapy; Z91.52 Personal history of nonsuicidal self-harm; Z91.148 Patient's other noncompliance with medication regimen for other reason; F41.9 Anxiety disorder, unspecified
CPT/HCPCS: 99284; 96365; 93005; 82962; J7060; J3490

== ENCOUNTER 2025-01-29 15:51 | Emergency (ER) | payer OTHER ==
[~2025-01-29] VITALS: Ht 170.2 cm; Wt 152.0 kg
[~2025-01-29 15:51] MED LIST changes: +DIVA500T2 PO; -IV NS 0.9% 1,000 ML BAG IV ONE; -LEVETIRACETAM (500MG) 1,000 MG in IV NS 0.9% 100 ML IV ONE; -LORAZEPAM INJ 2 MG/ML VIAL IV ONE; -LORAZEPAM INJ 2 MG/ML VIAL IVP ONE; -LORAZEPAM INJ 2 MG/ML VIAL ONE
[2025-01-29 16:01] VITALS: TEMP 98.4
[2025-01-29] MEDS ORDERED: LORAZEPAM INJ 2 MG/ML VIAL ONE (16:45)
[2025-01-29] MEDS: VALPROATE 500 MG in IV D5W 100 ML IV STA (17:03)
[2025-01-29] MEDS: IV NS 0.9% 1,000 ML BAG IV ONE (17:04)
[2025-01-29] MEDS: LORAZEPAM INJ 2 MG/ML VIAL IV ONE (17:04)
[2025-01-29 18:06] VITALS: BP 158/78; O2SAT 96
== END 2025-01-29 18:05 | disposition home or self-care (01) ==
LOC: ER 15:54
DX: G40.909 Epilepsy, unspecified, not intractable, without status epilepticus (principal); I10 Essential (primary) hypertension; F31.9 Bipolar disorder, unspecified; F17.200 Nicotine dependence, unspecified, uncomplicated; J45.909 Unspecified asthma, uncomplicated; Z91.148 Patient's other noncompliance with medication regimen for other reason; Z91.52 Personal history of nonsuicidal self-harm
CPT/HCPCS: 99284; 96365; 96375; J2060; J7060; J3490